=== PATIENT | male | born 1980 | race Caucasian/White ===

== ENCOUNTER 2023-08-17 20:50 | Inpatient (IN) | payer OTHER ==
[~2023-08-17] VITALS: Ht 180.3 cm; Wt 130.6 kg
[2023-08-17 22:45] VITALS: BP 131/84; TEMP 97.9; O2SAT 95
[2023-08-17] MEDS ORDERED: MAG HYDROX/AL HYDROX/SIMETH 30 ML UDC PO PRN (23:00)
[2023-08-17] MEDS ORDERED: ACETAMINOPHEN 325 MG TABLET PO PRN (23:00)
[2023-08-17] MEDS ORDERED: ONDANSETRON HCL/PF 4 MG/2 ML VIAL IVP PRN (23:00)
[2023-08-17] MEDS ORDERED: ZOLPIDEM TARTRATE 5 MG TABLET PO PRN (23:00)
[2023-08-17] MEDS ORDERED: MAGNESIUM HYDROXIDE 30 ML UDC PO PRN (23:00)
[2023-08-17] MEDS ORDERED: Z GUARD REMEDY 4 OZ OINT TP PRN (23:00)
[2023-08-17] MEDS: MORPHINE SULFATE INJ 2 MG/ML DISP.SYRIN IV PRN (23:46)
[2023-08-17] MEDS: IV D5/0.45 NACL 1,000 ML IV PRN (23:50)
[2023-08-18] VITALS: BP 126/79; TEMP 97.8; O2SAT 98
[2023-08-18] MEDS ORDERED: METRONIDAZOLE 500MG/ NS 100ML 100 ML IV ONE (00:04)
[2023-08-18] MEDS: METRONIDAZOLE 500MG/ NS 100ML 500 MG in PREMIX 1 EA IV SCH ×2 (00:09→08:30)
[2023-08-18] MEDS ORDERED: FENO200C PO (00:26)
[2023-08-18] MEDS ORDERED: EZET10TA15 PO (00:26)
[2023-08-18] MEDS ORDERED: METF-440 PO (00:26)
[2023-08-18] MEDS ORDERED: DEXTROSE 50%-WATER 50 ML DISP.SYRIN IV PRN (00:30)
[2023-08-18] MEDS: BLOOD SUGAR DIAGNOSTIC 1 EACH STRIP IN SCH (01:13)
[2023-08-18 04:00] VITALS: BP 120/69; TEMP 97.9; O2SAT 95
[2023-08-18 07:04] LABS: BASOPHILS # (AUTO) 0.1 K/uL (0.0-0.2); BASOPHILS % (AUTO) 0.8 % (0.0-2.0); EOSINOPHILS # (AUTO) 0.7 K/uL (0.0-0.7); EOSINOPHILS % (AUTO) 7.7 % (0.0-6.0); HEMATOCRIT 39 % (39-51); LYMPHOCYTES # (AUTO) 1.7 K/uL (0.8-4.8); LYMPHOCYTES % (AUTO) 20.5 % (20.0-44.0); MEAN CORPUSCULAR HEMOGLOBIN 29 PG (26.0-33.0); MEAN CORPUSCULAR HGB CONC 34 g/dl (31.0-36.0); MEAN CORPUSCULAR VOLUME 87 fL (80-96); MONOCYTES # (AUTO) 0.8 K/uL (0.1-1.30); MONOCYTES % (AUTO) 9.3 % (2.0-12.0); NEUTROPHILS # (AUTO) 5.3 K/uL (1.8-8.9); NEUTROPHILS % (AUTO) 61.7 % (43.0-81.0); PLATELET COUNT (AUTO) 310 K/uL (150-450); RED BLOOD CELL COUNT(AUTO) 4.42 MIL/uL (4.5-6.0); RED CELL DISTRIBUTION WIDTH 13.7 % (11.5-15.0); WHITE BLOOD COUNT (AUTO) 8.6 K/uL (4.3-11.0)
[2023-08-18 07:22] LABS: CALCIUM, SERUM 8.1 mg/dL (8.5-10.1); CREATININE 0.8 mg/dL (0.6-1.3); MAGNESIUM 2.1 mg/dL (1.8-2.4); PHOSPHORUS 2.9 mg/dL (2.5-4.9); POTASSIUM 4.1 mmol/L (3.5-5.1)
[2023-08-18 08:00] VITALS: BP 133/76; TEMP 98.2
[2023-08-18] MEDS: PANTOPRAZOLE 40 MG VIAL IV SCH (08:30)
[2023-08-18] MEDS: CIPROFLOXACIN IV RTU 400 MG in PREMIX 1 EA IV SCH (12:00)
[2023-08-18] MEDS: ENOXAPARIN SODIUM 40 MG/0.4 ML DISP.SYRIN SQ SCH (13:04)
[2023-08-18] MEDS: HYDROMORPHONE 1 MG/1 ML DISP.SYRIN IV PRN (14:10)
[2023-08-18 16:00] VITALS: BP 115/84; TEMP 98.4; O2SAT 94
[2023-08-18] MEDS: ZOSYN IVPB 3.375 G in IV D5W 50ml IV ONE (16:30)
[2023-08-18 20:00] VITALS: BP 124/86; TEMP 98.2; O2SAT 94
[2023-08-18] MEDS: INSULIN REGULAR, HUMAN 100 UNIT/ML 3 ML VIAL SQ PRN (20:02)
[2023-08-18] MEDS: ZOSYN IVPB 3.375 G in IV D5W 50ml IV SCH (21:01)
[2023-08-19] MEDS ORDERED: PIPERACILLIN /TAZOBACTAM 3.375 G in IV D5W 100 ML IV SCH
[2023-08-19 07:00] VITALS: BP 115/77; TEMP 98.1; O2SAT 97
[2023-08-19 07:22] LABS: BASOPHILS # (AUTO) 0.1 K/uL (0.0-0.2); EOSINOPHILS # (AUTO) 0.7 K/uL (0.0-0.7); EOSINOPHILS % (AUTO) 11.6 % (0.0-6.0); HEMATOCRIT 40 % (39-51); HEMOGLOBIN 13.5 g/dL (13.5-17.5); LYMPHOCYTES # (AUTO) 1.6 K/uL (0.8-4.8); LYMPHOCYTES % (AUTO) 27.4 % (20.0-44.0); MEAN CORPUSCULAR HEMOGLOBIN 29 PG (26.0-33.0); MEAN CORPUSCULAR HGB CONC 34 g/dl (31.0-36.0); MEAN CORPUSCULAR VOLUME 87 fL (80-96); MONOCYTES # (AUTO) 0.7 K/uL (0.1-1.30); NEUTROPHILS # (AUTO) 2.9 K/uL (1.8-8.9); PLATELET COUNT (AUTO) 332 K/uL (150-450); RED BLOOD CELL COUNT(AUTO) 4.63 MIL/uL (4.5-6.0); RED CELL DISTRIBUTION WIDTH 13.7 % (11.5-15.0)
[2023-08-19 07:38] LABS: ALBUMIN 2.8 g/dL (3.4-5.0); BILIRUBIN,TOTAL 0.4 mg/dL (0.2-1.0); CALCIUM, SERUM 8.5 mg/dL (8.5-10.1); CREATININE 0.8 mg/dL (0.6-1.3); MAGNESIUM 2.4 mg/dL (1.8-2.4); PHOSPHORUS 3.8 mg/dL (2.5-4.9)
[2023-08-19] MEDS: BLOOD SUGAR DIAGNOSTIC 1 EACH STRIP IN SCH (11:45)
[2023-08-19] MEDS: PIPERACILLIN /TAZOBACTAM 3.375 G in IV D5W 100 ML IV SCH (12:13)
[2023-08-19 16:00] VITALS: BP 125/86; TEMP 97.7; O2SAT 95
[2023-08-19 20:42] VITALS: BP 132/84; TEMP 98.2; O2SAT 94
[2023-08-20 07:00] VITALS: BP 135/83; TEMP 98.4; O2SAT 96
[2023-08-20] MEDS: PANTOPRAZOLE 40 MG/PACK PACK PO SCH (08:22)
[2023-08-20] MEDS ORDERED: METR500T PO (12:53)
[2023-08-20] MEDS ORDERED: LEVO500T90 PO (12:53)
== END 2023-08-20 14:05 | disposition home or self-care (01) | DRG 244 ==
LOC: TELE 22:44 → MED 08-18 12:10
PROVIDERS: ADMIT Student in an Organized Health Care Education/Training Program; ATTEND Nurse Practitioner Acute Care
DX: K57.32 Diverticulitis of large intestine without perforation or abscess without bleeding (principal); E11.9 Type 2 diabetes mellitus without complications; E78.5 Hyperlipidemia, unspecified; Z79.84 Long term (current) use of oral hypoglycemic drugs; Z79.899 Other long term (current) drug therapy
CPT/HCPCS: 36415; 80048-TC; 80053-TC; 82962-TC; 83735-TC; 84100-TC; 85025-TC; A4216; A4223; C9113; G0378; J0744; J1170; J1650; J1815; J2270; J2543; J3490; J7050; J7060